=== PATIENT | male | born 1980 | race Caucasian/White ===

== ENCOUNTER → 2017-02-08 | Day surgery (SDC) | payer OTHER ==
[~2017-02-08] VITALS: Ht 180.3 cm; Wt 93.9 kg
[~2017-02-08] MED LIST: ACETAMINOPHEN/HYDROcodone 325 MG/5 MG TAB PO PRN; BUTATAB6 PO; CHLORHEXIDINE GLUCONATE 2 % 1 PACK (2 CLOTHS) TOPICAL PRN; DO NOT ADM ANY ANTICOAGULANT DRUGS PRN; INSULIN HUMAN REGULAR 1,000 UNITS/10 ML VIAL SQ PRN; LACTATED RINGER'S 1000 ML IV PRN; METOPROLOL TARTRATE 25 MG TAB PO PRN; MIDAZOLAM HCL 2 MG/2 ML VIAL ONE; MORPHINE SULFATE 4 MG/ML INJ IV PRN; MORPHINE SULFATE 4 MG/ML INJ ONE; ONDANSETRON HCL 4 MG/2 ML VIAL IV PRN; ONDANSETRON HCL 4 MG/2 ML VIAL IV PUSH ONE; POVIDONE IODINE 5% (ANTISEPSIS KIT) 4 APPLICATIONS EACH NARE PRN; PROPOFOL 200 MG/20 ML AMP IV ONE; SODIUM CHLORID 0.9% 500 ML IV PRN; ceFAZolin 1,000 MG/NS 100 ML IV SCH
[2017-02-08 08:21] LABS: AUTOMATED NEUTROPHIL # 2.6 TH/MM3 (1.8-7.7); BASOPHIL % 0.9 % (0.0-2.0); EOSINOPHIL # 0.1 TH/MM3 (0-0.4); EOSINOPHIL % 1.3 % (0.0-4.0); HEMATOCRIT 46.6 % (39.0-51.0); HEMO FLAGS DIFF FINAL; LYMPH % 36.9 % (9.0-44.0); LYMPHOCYTE # 1.7 TH/MM3 (1.0-4.8); MEAN CELL VOLUME 96.1 FL (80.0-100.0); MEAN CORPUSCULAR HEMOGLOBIN 33.7 PG (27.0-34.0); MEAN CORPUSCULAR HGB CONC 35.1 % (32.0-36.0); MONO % 6.6 % (0.0-8.0); NEUT % 54.3 % (16.0-70.0); PLATELET COUNT 188 TH/MM3 (150-450); RED BLOOD COUNT 4.85 MIL/MM3 (4.50-5.90); RED CELL DISTRIBUTION WIDTH 12.8 % (11.6-17.2); WHITE BLOOD COUNT 4.7 TH/MM3 (4.0-11.0)
--- NOTE | 2017-02-08 09:07 | RADRPT ---
EXAM DATE/TIME: 02/08/2017 07:44 [place] COMPARISON: ABDOMEN KUB ONLY, March 16, 2016, 8:01. CT ABDOMEN & PELVIS W/O CONTRAST, March 06, 2016, 21:4 5. INDICATIONS : Pre-op lithotripsy. MEDICAL HISTORY : Renal calculi. SURGICAL HISTORY : Hernia repair, lithotripsy. ENCOUNTER: Initial ACUITY: 1 day PAIN SCORE: 0/10 LOCATION: abdomen. FINDINGS: There is a faint 8mm calcific density overlying the lower pole of the left kidney. Stool overlies the right renal fossa. No suspicious pelvic calcifications are seen. There is evidence of previous mesh left inguinal hernia repair. Intestinal gas pattern is nonspecific and benign. Skeletal structures ar e grossly intact. CONCLUSION: Left lower pole kidney stone Geo Martínez MD on February 08, 2017 at 9:02 Board Certified Radiologist. This report was verified electronically.
--- NOTE | 2017-02-08 09:40 | PD.OP ---
Operative Report Date of Surgery: Feb 08, 2017 Preoperative Diagnosis: Left renal stone Postoperative Diagnosis: Same Procedure: Left extracorporeal shockwave lithotripsy Anesthesia: TIVA Surgeon: Leon Arcos Can Line Examiner(s): None Resident Surgeon: None Operation and Findings: 36-year-old male with findings of a 7 mm left lower pole renal calculus elected to undergo left extracoporeal shockwave lithotripsy. Risk and benefits were discussed preoperatively and he was willing to proceed. Patient is brought to the operating room and identified by myself as Denzel Choi. His placed on the operating room table in the supine position, received preprocedure antibiotics and TIVA anesthesia was administer. Under fluoroscopic imaging guidance the stone was visualized left lower pole. ESWL therapy commenced with good fragmentation visualized on fluoroscopy. Patient received a total 2500 shocks. He tolerated the procedure well and was woken and transferred to recovery stable condition. He'll follow-up in the office and obtain a KUB prior. Leon Arcos DO Feb 08, 2017 09:40
[2017-02-08 10:30] VITALS: BP 136/97; PULSE 51; RESP 18; O2SAT 100
== END | disposition home or self-care (01) ==
LOC: HSDC 07:06
PROVIDERS: ATTEND Urology
DX: N20.0 Calculus of kidney (principal); I10 Essential (primary) hypertension; Z01.818 Encounter for other preprocedural examination
CPT/HCPCS: 00872; 50590; 74000; 85025; J0690; J2250; J2270; J2405; J3010; J7120